=== PATIENT | female | born 1955 | race Caucasian/White ===

== ENCOUNTER 2016-04-10 07:12 | Day surgery (SDC) | payer BC, OTHER ==
[~2016-04-10 07:12] MED LIST: PROPOFOL INJ 200 MG/20 ML VIAL IV ONE
[2016-04-10 08:39] VITALS: BP 112/65
--- NOTE | 2016-04-10 13:00 | Operative Report ---
Operative Report DATE OF SURGERY: 04/10/16 Operative Report: The risks, benefits and alternatives of the procedure including risks of bleeding, perforation requiring surgery are explained to the patient detail and informed consent is obtained. Patient is taken back to the endoscopy suite and placed in a left, lateral decubital position. Timeout is called. Propofol medications administered. A rectal examination was done which did not reveal any masses, tears or fissures. An Olympus videoscope was inserted into the patient's rectum. Keeping the lumen in site at all times the scope was then gradually advanced all the way to the cecum. The cecum as identified by the usual anatomical landmarks of the ileocecal valve as well as the appendiceal office. Photodocumentation is obtained. Prep is good. The scope was then sequentially pulled back via the rest segments of the colon including the ascending colon, hepatic flexure, transverse colon, splenic flexure, descending colon and finally into the rectosigmoid colon. Mucosa does appear to be normal. Retroflexion maneuvers performed. PREOPERATIVE DIAGNOSIS: Personal history of polyps POSTOPERATIVE DIAGNOSIS: Colon polyp in the splenic flexure that is removed via snare polypectomy and retrieved. Diverticulosis. Internal hemorrhoids OPERATION: Colonoscopy with snare polypectomy SURGEON: DOLLY COLUNGA ANESTHESIA: LMAC TISSUE REMOVED OR ALTERED: Colon Specimen retrieved COMPLICATIONS: None. ESTIMATED BLOOD LOSS: none. INTRAOPERATIVE FINDINGS: As described above. PROCEDURE: Patient tolerated the procedure well. No immediate postprocedure complications are noted. Patient is discharged in good condition. Discharge date 04/10/2016. Discharge diet: Regular. Discharge activity: Regular. Surveillance colonoscopy in 3-5 years. Patient is instructed to call the office or proceed to the emergency room to any further problems or questions. Patient does have a 2-3 week follow-up to discuss findings. We'll await on biopsies.
== END 2016-04-10 08:50 | disposition home or self-care (01) ==
LOC: END 07:12
PROVIDERS: ATTEND Internal Medicine Gastroenterology
PROC: 0DBE8ZX Excision of Large Intestine, Via Natural or Artificial Opening Endoscopic, Diagnostic (ICD-10-PCS; principal; 2016-04-10 08:00)
DX: K63.5 Polyp of colon (principal); I10 Essential (primary) hypertension; E78.5 Hyperlipidemia, unspecified; K57.30 Diverticulosis of large intestine without perforation or abscess without bleeding; K64.8 Other hemorrhoids; F41.9 Anxiety disorder, unspecified; F32.9 Major depressive disorder, single episode, unspecified
CPT/HCPCS: 45385; 88305 ×2; J2704; 810

== ENCOUNTER → 2017-06-26 | Outpatient (CLI) | payer BC, OTHER ==
--- NOTE | 2017-06-27 08:56 | RADIOLOGY REPORT (SQ) ---
EXAM DESCRIPTION: MRI LT LOWER JOINT WITHOUT COMPLETED DATE/TIME: 06/26/2017 8:37 pm REASON FOR STUDY: LOW BACK PAIN, PAIN IN LEFT HIP M54.5 LOW BACK PAIN M25.552 PAIN IN LEFT HIP COMPARISON: MRI lumbar spine 06/26/2017 TECHNIQUE: Lefthip images acquired and stored on PACS. Multiplanar images to include fat sensitive s equences as T1, fluid sensitive sequences as T2/STIR and gradient echo sequences. Large FOV fat and f luid sensitive sequences include pelvis and opposite hip. LIMITATIONS: None. FINDINGS: BONE CORTEX AND MARROW: No generalized marrow replacement. No occult fracture. No worriso me bone lesions. LEFT HIP: FEMORAL HEAD: No occult fracture. No osteophytes or subchondral cysts. Normal sphericity of femoral h ead/neck junction. No acetabular dysplasia. No evidence femoroacetabular impingement. No significant effusion. ACETABULUM: There is minimal subcortical bony edema in the anterior edge of the acetabular roof best shown on sagittal series 8, image 18, and axial series 10, image 9. LABRUM: Minimal degenerative change in the anterior edge of the left acetabular labrum on coronal ser ies 9, images 12-15. This is adjacent to minimal subcortical edema in the anterior acetabular roof. No paralabral cyst TROCHANTER: No trochanteric bursal effusion. Minimal edema/fluid at the insertions of the gluteus me dius and gluteus minimus. RIGHT HIP: Limited evaluation. No worrisome bone lesions. No significant effusion. PELVIS, LOWER LUMBAR SPINE, SACROILIAC JOINTS: PELVIS : No insufficiency/stress fractures. No significant degenerative changes. Sacroiliac joints normal. MUSCLES AND SOFT TISSUES: Adductors and piriformis normal. Abductors and greater trochanteric bursa n ormal without edema or fluid. Iliopsoas bursa without fluid. Hamstring attachments without edema or t ear. PELVIC SOFT TISSUES: No masses or adenopathy. Normal size postmenopausal female organs. Artifact fr om tubal ligation clips. IMPRESSION: Degenerative change anterior edge left acetabular labrum with adjacent subcortical marro w edema in the acetabular roof TECHNICAL DOCUMENTATION: JOB ID: [id number] [employer]- All Rights Reserved Reading location - IP/workstation name: [email or web address] [email or web address]
--- NOTE | 2017-06-27 09:07 | RADIOLOGY REPORT (SQ) ---
EXAM DESCRIPTION: MRI LUMBAR SPINE WITHOUT COMPLETED DATE/TIME: 06/26/2017 8:37 pm REASON FOR STUDY: LOW BACK PAIN, PAIN IN LEFT HIP M54.5 LOW BACK PAIN M25.552 PAIN IN LEFT HIP COMPARISON: None. TECHNIQUE: Sagittal and Axial imaging includes T1, T2, STIR and gradient echo sequences. Coronal T2/ HASTE imaging. LIMITATIONS: None. FINDINGS: VISUALIZED UPPER ABDOMEN: Limited evaluation. No acute or suspicious findings suggested. SEGMENTATION: No transitional anatomy. The lowest well-developed disc space is labeled L5-S1. ALIGNMENT: Mild convex rightward lumbar curvature. Minimal retrolisthesis of L2 over L3. Mild grade 1 anterolisthesis of L4 over L5. VERTEBRAE: Intact. BONE MARROW: Edematous vertebral body endplate changes at L2-3. Fatty vertebral body endplate change s at L5-S1 DISC SIGNAL: Normal. No significant abnormal signal or loss of height. POSTERIOR ELEMENTS: Suspect degenerative spondylolysis bilaterally at L5 HARDWARE: None in the spine. CORD AND CONUS: Normal in size and signal intensity. Conus at the L1-2 level. SOFT TISSUES: No aortic aneurysm seen. No bulky retroperitoneal adenopathy or mass. No paraspinal mas s or fluid. T10-11: Broad diffuse posterior disc bulging and bony spurring is present with moderate facet hypert rophy. Mild central canal narrowing and mild bilateral foraminal narrowing. This level is at the up per most edge of the field of view. T11-12: Mild bilateral facet hypertrophy. No central or foraminal encroachment. T12-L1: Mild diffuse posterior disc bulging. No central canal or foraminal stenosis. L1-L2: Mild diffuse post to disc bulging and mild facet hypertrophy. Borderline central canal narrow ing. Mild bilateral inferior foraminal narrowing without exiting L1 nerve root impingement. L2-L3: Slight degenerative retrolisthesis of L2 over L3 with advanced disc space loss of height and e dematous vertebral body endplate changes. Broad diffuse posterior disc bulge and moderate bilateral facet hypertrophy. Mild central stenosis. Mild right, moderate to high-grade left foraminal narrowi ng with partial effacement of the fat planes around the exiting left L2 nerve root. L3-L4: Mild diffuse posterior disc bulge and bony spurring. Bulky bilateral facet hypertrophy. Mild central canal narrowing. Mild right and left foraminal narrowing without exiting L3 nerve root impi ngement. L4-L5: Broad diffuse posterior disc bulge and bony spurring, bulky bilateral facet hypertrophy and gr johnny 1 anterolisthesis of L4 over L5 causes mild to moderate central canal narrowing. Asymmetric flat tening of the thecal sac containing the right L5 nerve root in the lateral recess. These changes are best shown on axial T2 image 22 and 23. Elsewhere at L4-5 there is mild right and left foraminal narrowing without exiting L4 nerve root impi ngement. L5-S1: Broad diffuse posterior disc bulging, mild bilateral facet and ligament hypertrophy. No centr al stenosis. Aivmbpjy-pz-ohfygn bilateral foraminal narrowing with partial effacement of fat around the exiting L5 nerve roots bilaterally. SACRUM: Visualized upper sacrum intact. OTHER: No other significant findings. IMPRESSION: Diffuse degenerative changes as above. Significant left foraminal narrowing at L2-3, an d bilateral foraminal stenosis at L5-S1 TECHNICAL DOCUMENTATION: JOB ID: [id number] [employer]- All Rights Reserved Reading location - IP/workstation name: [email or web address]
== END ==
LOC: RAD 18:19
PROVIDERS: ATTEND Physician Assistant
DX: M54.5 Low back pain (principal); M25.552 Pain in left hip; M48.07 Spinal stenosis, lumbosacral region
CPT/HCPCS: 72148

== ENCOUNTER → 2018-07-10 | Outpatient (CLI) | payer BC, OTHER ==
--- NOTE | 2018-07-11 11:04 | RADIOLOGY REPORT (SQ) ---
EXAM DESCRIPTION: MRI RT LOWER JOINT WITHOUT COMPLETED DATE/TIME: 07/10/2018 6:30 pm REASON FOR STUDY: M25.561 PAIN IN RIGHT KNEE M25.561 PAIN IN RIGHT KNEE COMPARISON: MRI right knee 07/12/2013 TECHNIQUE: Rightknee images acquired and stored on PACS. Multiplanar images include fat sensitive s equences as T1, water sensitive sequences as FST2 or STIR, cartilage sensitive sequences as FSPD, and gradient echo sequences. LIMITATIONS: None. FINDINGS: JOINT AND BURSAE: No effusion. 2 cm multi septated ganglion cyst along the posterior aspe ct of the lateral femoral condyles on coronal image 20. 2 cm multi septated ganglion cyst along the posterior midline joint on coronal image 22. BONE CORTEX AND MARROW: No marrow signal abnormalities worrisome for aggressive marrow replacement pr ocess ACL: Diffusely high signal on sagittal T1 weighted image 14. A few intact anterior band fibers are p resent. This most likely represents an ACL strain PCL: Intact. MCL: Intact. No periligamentous edema or fluid. LCL: Intact. However there is fluid between the iliotibial band and the lateral collateral ligament on coronal images 15-20. Inflammation along the distal iliotibial band is suspected MEDIAL MENISCUS: Small horizontal tear midbody medial meniscus best shown on coronal image 18. LATERAL MENISCUS: Question tiny horizontal tear mid body lateral meniscus on coronal image 18. MEDIAL COMPARTMENT: Moderate chondromalacia is present along the medial half of the medial compartmen t with mild bony spurring. No reactive marrow edema. LATERAL COMPARTMENT: No significant chondromalacia in the lateral compartment. No reactive marrow ed roslyn. PATELLA: High-grade chondromalacia along the lateral patellar facet, moderate medial patellar facet c hondromalacia. Subcortical edema in the lateral half of the patella with moderate bony spurring best shown on axial image 10. Medial and lateral retinacula intact. EXTENSOR MECHANISM: Intact. Quadriceps and patella tendons normal. SOFT TISSUES: Adjacent muscles and subcutaneous tissues normal. Normal flow void in popliteal artery and vein. OTHER: No other significant finding. 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
== END ==
LOC: RAD 17:30
PROVIDERS: ATTEND Physician Assistant
DX: M25.561 Pain in right knee (principal)